=== PATIENT | male | born 1965 | race African-American/Black ===

== ENCOUNTER 2023-11-26 14:48 | Emergency (ER) | payer SELFPAY ==
[~2023-11-26] VITALS: Ht 190.5 cm; Wt 85.0 kg
[2023-11-26 14:55] VITALS: TEMP 99.1; O2SAT 98
[2023-11-26] MEDS ORDERED: IBUP-2029 MT (17:44)
[2023-11-26] MEDS ORDERED: AMOX1TAB16 MT (17:44)
[2023-11-26] MEDS ORDERED: AMOXICILLIN/POTASSIUM CLAVULANATE 875/125MG TAB PO ONE (17:45)
[2023-11-26] MEDS ORDERED: IBUPROFEN 600MG TABLET PO ONE (17:45)
[2023-11-26 18:06] VITALS: BP 153/88; PULSE 100; RESP 20
== END 2023-11-26 18:12 | disposition home or self-care (01) ==
LOC: ER 14:48
DX: K04.7 Periapical abscess without sinus (principal)
CPT/HCPCS: 99283